=== PATIENT | male | born 1975 | race Two or more races ===

== ENCOUNTER 2023-09-03 12:21 | Emergency (ER) | payer OTHER, SELFPAY ==
[2023-09-03] VITALS (10 sets, daily range): BP systolic 105–124; BP diastolic 62–75; PULSE 85–92; RESP 16–20; TEMP 36.9–37.1; O2SAT 92–98; BMI 28.8
--- NOTE | ~2023-09-03 | CT_ITS ---
EXAMINATION: CT SOFT TISSUE NECK WITH CONTRAST CLINICAL INFORMATION: Question peritonsillar abscess. COMPARISON: None available. TECHNIQUE: Following intravenous administration of 60 mL of Omnipaque 350 contrast, helical imaging was performed in the axial plane with generation of coronal and sagittal reformatted images. This CT examination was performed using dose optimization techniques as appropriate, variously including the following: Automated exposure control. Adjustment of mA and/or kV according to patient size (this includes techniques or standardized protocols for targeted exams where dose is matched to indication/reason for exam; i.e. extremities or head). Use of iterative reconstruction technique. DLP: 688 mGy-cm. FINDINGS: There is asymmetric heterogeneous enhancement and soft tissue thickening of the right oropharyngeal wall with a questionable developing collection measuring 1 cm in size in the right palatine tonsil. Submucosal edematous change noted throughout the soft palate and posterior wall of the oropharynx. There is mildly increased enhancement and submucosal edema in the left oropharyngeal wall as well. There is mild soft tissue infiltration and haziness of the right parapharyngeal fat space. No abnormal retropharyngeal fluid collection is seen. Significant submucosal edema is noted in the aryepiglottic folds and posterior pharyngeal wall with effacement of the apertures of the piriform sinuses bilaterally. Milder submucosal edema also evident in the epiglottis, more so on the fixed portion. The false vocal folds appear normal. The glottic and subglottic larynx are normal in appearance. The laryngeal vestibule is moderately narrowed at the level of the aryepiglottic folds. There is mild reactive cervical adenopathy as well with some fluid and soft tissue stranding in the right submandibular triangle. Significant leftward nasal septal deviation noted. The imaged orbits appear normal. The oral cavity and floor of the mouth appear normal. The parotid glands are homogeneous in attenuation. The submandibular glands otherwise appear normal. No sialoliths are seen. The material control clerk space musculature is normal. The carotid sheath vasculature opacifies normally. There is a small calcification at the upper pole of the right thyroid lobe. The remainder of the thyroid gland is normal. The visualized mediastinum is unremarkable. The imaged axillae appear normal. The visualized portions of the lungs are clear. No acute osseous abnormality is seen. The craniovertebral junction is normal. The patient is edentulous. The TMJs are normal. The paranasal sinuses, middle ear cavities, and mastoid air cells are clear. The visualized portions of the brain demonstrate no acute abnormality. CT/CT soft tissue neck w IV con IMPRESSION: 1. Question of a developing small 1 cm peritonsillar abscess on the right side with surrounding phlegmonous changes in the oropharyngeal wall, demonstrating heterogeneous enhancement and asymmetric thickening. Mild reactive cervical adenopathy in the suprahyoid neck, more so on the right side and without suppurative change. No retropharyngeal fluid collection identified. 2. Additional diffuse submucosal edema throughout the pharyngeal mucosal space, including the soft palate and in the supraglottic portions of the larynx. Significant edema affecting the lawson of the hypopharynx as well with moderate narrowing of the laryngeal vestibule. Mild extra-mucosal soft tissue stranding and fluid in the right anterior cervical space and right submandibular triangle with mild infiltration of the right parapharyngeal fat. Findings are suspected to be infectious/inflammatory in etiology. Query for any presentation suspicious for angioedema. Recommend follow-up ENT evaluation and laryngoscopy. Findings reported to Dr. Crain at 4:15 PM on 09/03/2023.
--- NOTE | 2023-09-03 12:42 | ED_ITS ---
HPI - General Adult General Chief complaint: General Medical Stated complaint: Abscess in throat Time Seen by Provider: 09/03/23 13:22 Source: patient and family ( Spouse) Mode of arrival: ambulatory Limitations: no limitations History of Present Illness HPI narrative: 48-year-old male came in with 3 days of sore throat, fever, chills. patient was seen at an urgent care today and was sent to the ED for further evaluation of possible throat abscess. Patient is able to speak in a full sentence, able to manage and swallow his saliva. Related Data Previous Rx's Medication Instructions Recorded amoxicillin 500 mg-potassium 1 tab PO TID #20 tabs 09/03/23 clavulanate 125 mg tablet (Augmentin) clindamycin HCl 300 mg capsule 300 mg PO TID #20 caps 09/03/23 prednisone 10 mg tablet 10 mg PO BID #10 tabs 09/03/23 Allergies Allergy/AdvReac Type Severity Reaction Status Date / Time No Known Allergies Allergy Verified 09/03/23 12:38 Review of Systems 2 Review of Systems: all other systems are reviewed and are negative Constitutional: Reports as per HPI and Reports no additional constitutional complaints Eyes: Reports as per HPI and Reports no additional eye complaints Reports system reviewed and no additional complaints, except as documented Cardiovascular: Reports as per HPI and Reports no additional cardiovascular complaints Respiratory: Reports as per HPI and Reports no additional respiratory complaints Gastrointestinal: Reports as per HPI and Reports no additional gastrointestinal complaints Genitourinary: Reports no additional female genitourinary complaints Musculoskeletal: Reports no additional musculoskeletal complaints Skin/Breast: Reports system reviewed and no additional complaints, except as docu Psychiatric: Reports no additional psychiatric complaints Endocrine: Reports no additional endocrine complaints Hematologic/Lymphatic: Reports no additional hematologic/lymphatic complaints Allergic/Immunologic: Reports no additional allergic/immunologic complaints Reports system reviewed and no additional complaints, except as documented and Reports Abnormal speech present [facility] Social History Social History Smoked in Last 30 Days: Yes Use of substances other than those prescribed or required for medical reasons: No Advance Directives: No Physical Exam ED Vital Signs: Vital Signs - 24 hr 09/03/23 12:38 09/03/23 13:21 09/03/23 14:00 Temperature 98.5 F Pulse Rate 92 90 Respiratory Rate 18 16 Blood Pressure 117/69 124/75 Pulse Oximetry 98 93 93 Oxygen Delivery Method Room Air Room Air Room Air 09/03/23 15:33 09/03/23 15:34 09/03/23 15:41 Temperature 98.7 F Pulse Rate 92 Respiratory Rate 19 19 Blood Pressure 123/75 Pulse Oximetry 94 Oxygen Delivery Method Room Air 09/03/23 16:24 Temperature Pulse Rate 92 Respiratory Rate 20 Blood Pressure 121/72 Pulse Oximetry 92 Oxygen Delivery Method Room Air BMI result Body Mass Index 28.8 Vital signs have been reviewed and appear to be correct. Blood pressure elevated. Heart rate normal. Respiratory rate normal. Temperature normal. Oxygen saturation normal. Appearance: Alert. Oriented X3. No acute distress. Head: Normal external exam. Normocephalic. Atraumatic. No Hua signs noted. No raccoon eyes noted Eyes: PERRLA. EOMI. Conjunctiva and sclera normal. Eyelids normal. ENT: right peritonsillar abscess, uvula is swollen but midline, patent airway, muffled voice noted. Neck: Normal inspection. Neck supple. FROM. No adenopathy. Thyroid Normal. No meningeal signs. No neck mass noted. CVS: Normal heart rate and rhythm. Heart sound normal. No murmurs noted. Pulses normal throughout. Respiratory: No respiratory distress. Painless inspiration. Breath sounds normal. No wheezes/rales/rhonchi noted. Chest nontender. No accessory muscle usage noted or decreased air movement noted. Abdomen: Soft and nontender. Bowel sounds normal in all 4 quadrants. No distention noted. No organomegaly noted. No visible injury noted. Back: No CVA tenderness. Full range of motion noted. Skin: Skin warm and dry. Normal skin color. Normal skin turgor. No rashes/lesions/lacerations noted. Extremities: No lower extremity edema. Extremities exhibit normal range of motion. Extremities nontender. Neuro: Oriented X 3. Cranial nerve exam: II-XII are grossly intact No motor deficit. No sensory deficit. Reflexes normal. Course Course Course Narrative: Patient sent from urgent care for possible throat abscess Pharynx was swollen uvula looked swollen Basic lab sent as well as COVID and strep This is rapid medical exam and triage pending full evaluation by ER provider with history and physical, valuation of results and disposition Reevaluation(s) Reevaluation #2: There is radiographic concern of extensive swelling of her right side compromising airway, patient has no stridor, no shortness of breath at the current time. Because the radiographic concern of swelling will transfer to a tertiary facility for ENT evaluation the case signed out to Dr. Dias. Time: 16:23 Medications Administered Discontinued Medications Generic Name Dose Route Start Last Admin Trade Name Freq PRN Reason Stop Dose Admin Piperacillin Sod/Tazobactam 50 mls @ 100 mls/hr 09/03/23 13:44 09/03/23 14:57 Sod 3.375 gm/ Sodium Chloride IV 09/03/23 14:13 Infused ONCE ONE Infusion Clindamycin Phosphate 600 mg in 50 mls @ 100 mls/hr 09/03/23 14:51 09/03/23 16:14 Cleocin IV 09/03/23 15:20 Infused ONCE ONE Infusion Iohexol 100 ml 09/03/23 14:57 09/03/23 14:57 Iohexol 350 Mg/Ml 100 Ml Infus..Btl IV 09/03/23 14:58 60 ml ONCE ONE Administration Ketorolac Tromethamine 30 mg 09/03/23 15:17 09/03/23 15:33 Ketorolac Tromethamine 30 Mg/Ml Vial IVPUSH 09/03/23 15:18 30 mg ONCE ONE Administration Lidocaine HCl 1 appl 09/03/23 13:44 09/03/23 14:14 Lidocaine Hcl 4 % [id number] 4 Ml TOPICAL 09/03/23 13:45 1 appl ONCE ONE Administration Methylprednisolone Sodium Succinate 125 mg 09/03/23 13:44 09/03/23 14:14 Methylprednisolone Sod Succ 125 Mg/2 Ml Vial IVPUSH 09/03/23 13:45 125 mg ONCE ONE Administration Morphine Sulfate 1 mg 09/03/23 15:17 09/03/23 15:33 Morphine Sulfate 2 Mg/Ml Cartridge IVPUSH 09/03/23 15:18 1 mg ONCE ONE Administration Protocol Medical Decision Making Medical Decision Making MDM Narrative: -I received sign-out from Dr. Crain. -patient has significant swelling in the pharyngeal area on the right side. At this time, patient is handling well secretions, swallowing well. No difficulty breathing. -due to the extensive swelling/edema throughout the pharyngeal mucosal space, supraglottic portions of the larynx, lawson of the hypopharynx and narrowing of laryngeal vestibule, patient is to be seen by ENT which we do not have in this hospital. -I was informed that we tried contacting [facility], [facility], [facility], [facility], none are open for transfer at this time or they do not have ENT. -I discussed with the patient that he needs to be transferred, patient agreeable. -[facility] accepted the patient by Dr. Carmichael, ED to ED, patient and family agreeable -so far, patient has gotten 125 mg of Solu-Medrol, Zosyn, clindamycin, and 6 mg of Decadron. -radiology technicians attempted downloading the CT scan images to [place] webpage -a CD with imaging has been burned, will be going with the patient I have personally provided 30 minutes of critical care time. Time includes review of lab data, radiology results, discussion with consultants, and monitoring for potential decompensation. Intervention performed as documented. Differential Diagnosis Differential Diagnoses: The differential diagnosis associated with the presentation includes ( Strep pharyngitis, peritonsillar abscess, airway compromise, viral pharyngitis, electrolyte abnormality, renal insufficiency, severe anemia.) Admission/Observation Consideration of admission/observation: Escalation of care including admission/observation considered Lab Data MDM Lab Attestation statement: I reviewed the patient's lab results. 09/03/23 14:06 09/03/23 14:06 Labs: Lab Results 09/03/23 09/03/23 Range/Units 13:44 14:06 WBC 17.3 H (4.8-10.8) X10*3/uL RBC 3.53 L (4.60-5.80) X10*6/uL Hgb 11.9 L (14.0-18.0) g/dl Hct 36.0 L (42.0-52.0) % MCV 102.0 H (80.0-98.0) fL MCH 33.7 H (27.0-33.0) pg MCHC 33.1 (31.0-36.0) g/dl RDW 12.4 (11.0-16.0) % Plt Count 166 (160-400) X10*3/uL MPV 8.6 L (9.4-12.4) fL Immature Gran % (Auto) 0.6 H (0.0-0.4) % Neut % (Auto) 83.3 H (45-73) % Lymph % (Auto) 8.2 L (20-40) % Stephens % (Auto) 7.6 (2-11) % Eos % (Auto) 0.2 (0-4) % Baso % (Auto) 0.1 (0-2) % Lymph # (Auto) 1.4 (1.2-4.9) X10*3/uL Stephens # (Auto) 1.3 H (0.1-1.2) X10*3/uL Eos # (Auto) 0.0 (0.0-0.4) X10*3/uL Baso # (Auto) 0.0 (0.0-0.2) X10*3/uL Abs Immat Gran (auto) 0.10 H (0.00-0.03) X10*3/uL Absolute Neuts (auto) 14.4 H (2.0-8.3) x10*3/uL Absolute Nucleated RBC 0.000 (0.0-0.012) X10*3/uL Nucleated RBC % (auto) 0.0 (0.0-0.2) /100WBC Sodium 136 (135-145) mmol/L Potassium 4.3 (3.3-5.1) mmol/L Chloride 102 (96-108) mmol/L Carbon Dioxide 26 (22-29) mmol/L Anion Gap 12 (12-20) BUN 15 (9-16) mg/dL Creatinine 0.84 (0.5-1.4) mg/dL Estim Creat Clear Calc 117.9 Estimated GFR > 60 Random Glucose 93 (60-115) mg/dL Calcium 9.8 (8.4-10.2) mg/dL COVID-19 (LORENE) Negative (Negative) COVID-19 Clin Com See Note S. pyogenes GrpA MUSHTAQ Positive A (Negative) Independent Interpretation I performed an independent interpretation of an: CT Scan ( Soft tissue neck:) Radiology Impression Discussion of test interpretation with radiology: I have reviewed the radiologist's reading. Radiologist Impression: FINDINGS: There is asymmetric heterogeneous enhancement and soft tissue thickening of the right oropharyngeal wall with a questionable developing collection measuring 1 cm in size in the right palatine tonsil. Submucosal edematous change noted throughout the soft palate and posterior wall of the oropharynx. There is mildly increased enhancement and submucosal edema in the left oropharyngeal wall as well. There is mild soft tissue infiltration and haziness of the right parapharyngeal fat space. No abnormal retropharyngeal fluid collection is seen. Significant submucosal edema is noted in the aryepiglottic folds and posterior pharyngeal wall with effacement of the apertures of the piriform sinuses bilaterally. Milder submucosal edema also evident in the epiglottis, more so on the fixed portion. The false vocal folds appear normal. The glottic and subglottic larynx are normal in appearance. The laryngeal vestibule is moderately narrowed at the level of the aryepiglottic folds. There is mild reactive cervical adenopathy as well with some fluid and soft tissue stranding in the right submandibular triangle. Significant leftward nasal septal deviation noted. The imaged orbits appear normal. The oral cavity and floor of the mouth appear normal. The parotid glands are homogeneous in attenuation. The submandibular glands otherwise appear normal. No sialoliths are seen. The vision therapist space musculature is normal. The carotid sheath vasculature opacifies normally. There is a small calcification at the upper pole of the right thyroid lobe. The remainder of the thyroid gland is normal. The visualized mediastinum is unremarkable. The imaged axillae appear normal. The visualized portions of the lungs are clear. No acute osseous abnormality is seen. The craniovertebral junction is normal. The patient is edentulous. The TMJs are normal. The paranasal sinuses, middle ear cavities, and mastoid air cells are clear. The visualized portions of the brain demonstrate no acute abnormality. CT/CT soft tissue neck w IV con IMPRESSION: 1. Question of a developing small 1 cm peritonsillar abscess on the right side with surrounding phlegmonous changes in the oropharyngeal wall, demonstrating heterogeneous enhancement and asymmetric thickening. Mild reactive cervical adenopathy in the suprahyoid neck, more so on the right side and without suppurative change. No retropharyngeal fluid collection identified. 2. Additional diffuse submucosal edema throughout the pharyngeal mucosal space, including the soft palate and in the supraglottic portions of the larynx. Significant edema affecting the lawson of the hypopharynx as well with moderate narrowing of the laryngeal vestibule. Mild extra-mucosal soft tissue stranding and fluid in the right anterior cervical space and right submandibular triangle with mild infiltration of the right parapharyngeal fat. Findings are suspected to be infectious/inflammatory in etiology. Query for any presentation suspicious for angioedema. Recommend follow-up ENT evaluation and laryngoscopy. Critical Care Time Critical Care Time Critical Care Time: Yes Discharge Plan Discharge Clinical Impression: Pharyngitis due to group A beta hemolytic Streptococci Patient Disposition: [facility] Transfer Details: [facility], ED to ED, [address] , [place], [place] Instructions: Strep Throat (ED) Additional Instructions: come back to the emergency department in 2 days for recheck. Return to the emergency department Immediately if worsening of the symptoms, unable to swallow your saliva, unable to speak or swallow, difficulty breathing. Prescriptions: New amoxicillin-pot clavulanate [Augmentin] 500-125 mg tablet 1 tab PO TID Qty: 20 0RF clindamycin HCl 300 mg capsule 300 mg PO TID Qty: 20 0RF prednisone 10 mg tablet 10 mg PO BID Qty: 10 0RF
--- NOTE | 2023-09-03 13:28 | PC.NURSE ---
md coon aware pt o2 sat 90-93%- pt reports baseline is 93% approx. airway intact. md coon made aware pt reports his tongue feels large. no respiratory distress reported/noted. reg breathing rate/depth. +CMS. +pallor. vss. afebrile. MD paul'ing pt at bedside
[2023-09-03 14:05] LABS: COVID-19 Test Negative (Negative); IDNOW Serial# BCCEAD1C
--- NOTE | 2023-09-03 14:10 | PC.NURSE ---
iv placed. bloods/strep sent- per MD coon do strep- done
[2023-09-03 14:14] LABS: MANUAL DIFF FLAG NO
[2023-09-03] MEDS: Lidocaine HCl 4 % Laryng-O-Jet 4 ML 1 APPL TOPICAL (14:14)
[2023-09-03] MEDS: methylPREDNISolone Sod Succ 125 MG/2 ML VIAL IVPUSH (14:14)
[2023-09-03] MEDS: Piperacillin Sodium/Tazobactam 3.375 GM in 0.9 % Sodium Chloride 50 ML IV (14:14)
[2023-09-03 14:17] LABS: Basophils Percent Auto 0.1 % (0-2); Eosinophils Percent Auto 0.2 % (0-4); Hemoglobin 11.9 g/dl (14.0-18.0); Imm Gran Pct Auto 0.6 % (0.0-0.4); Lymphocytes Absolute Auto 1.4 X10*3/uL (1.2-4.9); Lymphocytes Percent Auto 8.2 % (20-40); Mean Corpuscular HGB Conc 33.1 g/dl (31.0-36.0); Mean Corpuscular Hemoglobin 33.7 pg (27.0-33.0); Mean Platelet Volume 8.6 fL (9.4-12.4); Monocytes Absolute Auto 1.3 X10*3/uL (0.1-1.2); Monocytes Percent Auto 7.6 % (2-11); Neutrophils Absolute Auto 14.4 x10*3/uL (2.0-8.3); Neutrophils Percent Auto 83.3 % (45-73); Platelet Count 166 X10*3/uL (160-400); Red Blood Count 3.53 X10*6/uL (4.60-5.80); Red Cell Distribution Width 12.4 % (11.0-16.0); White Blood Count 17.3 X10*3/uL (4.8-10.8)
--- NOTE | 2023-09-03 14:20 | PC.NURSE ---
aox4. calm, coop. no respiratory distress. clearing secretions by spitting. md coon at bedside
[2023-09-03 14:26] LABS: IDNOW Serial# 08D9AD1C; Strep A Nucleic Acid Positive (Negative)
[2023-09-03 14:35] LABS: Anion Gap 12 (12-20); Blood Urea Nitrogen 15 mg/dL (9-16); Calcium 9.8 mg/dL (8.4-10.2); Carbon Dioxide 26 mmol/L (22-29); Chloride 102 mmol/L (96-108); Creatinine Clr Calc Pharmacy 117.9; Estimated Glomerular Filt Rate > 60; Glucose Random 93 mg/dL (60-115); Potassium 4.3 mmol/L (3.3-5.1); Sodium 136 mmol/L (135-145)
[2023-09-03] MEDS: iohexoL 350 MG/ML 100 ML INFUS..BTL IV (14:57)
[2023-09-03] MEDS: Clindamycin Phosphate/D5W 600 MG/50 ML PIGGYBACK 100 MG IV (15:21)
[2023-09-03] MEDS: Morphine Sulfate 2 MG/ML CARTRIDGE 1 MG IVPUSH (15:33)
[2023-09-03] MEDS: Ketorolac Tromethamine 30 MG/ML VIAL IVPUSH (15:33)
[2023-09-03] MEDS: dexAMETHasone sod phosphate 4 MG/ML VIAL 6 MG IVPUSH (16:47)
--- NOTE | 2023-09-03 16:49 | PC.NURSE ---
no resp distress. airway intact. +CMS.
--- NOTE | 2023-09-03 19:47 | PC.NURSE ---
pt reporting pain to this rn, spo2 noted to be 92% RA.per pt this is baseline denies sob. this rn made dr velazquez aware of pt pain. per dr velazquez order for morphine 4mg ivp to be given. verbal order with read back of 4mg of ivp morphine placed by this rn.
[2023-09-03] MEDS: Morphine Sulfate 4 MG/ML CARTRIDGE IVPUSH (19:55)
--- NOTE | 2023-09-03 20:00 | PC.NURSE ---
pt remains on cardiac and spo2 monitor. pt medicated according to mar. pt denies sob. family at bedside
--- NOTE | 2023-09-03 20:53 | PC.NURSE ---
this rn gave report to [facility] prior to transfer. this rn gave report to rn at [facility] ed chanel ulloa for expect pt calm and cooperative
== END 2023-09-03 20:57 | disposition short-term general hospital (02) ==
PROVIDERS: Physician Assistant Medical; Emergency Provider Emergency Medicine
DX: J02.0 Streptococcal pharyngitis (principal); Z11.52 Encounter for screening for COVID-19
CPT/HCPCS: 70491; 80048; 85025; 87635; 87651; 96365; 96367; 96375; 96376; 99285; J0736; J1100; J1885; J2270; J2543; J2930; Q9967